=== PATIENT | male | born 1970 | race Caucasian/White ===

== ENCOUNTER 2023-09-09 06:33 | Outpatient (RCR) | payer OTHER, SELFPAY | END 2023-09-09 23:59 | disposition home or self-care (01) | LOC: RPT 06:33 | PROVIDERS: ATTENDING PHYSICIAN Orthopaedic Surgery; FAMILY PHYSICIAN Nurse Practitioner Primary Care | DX: M54.2 Cervicalgia (principal); Z73.6 Limitation of activities due to disability; M79.601 Pain in right arm; M54.6 Pain in thoracic spine; M43.22 Fusion of spine, cervical region | CPT/HCPCS: 97010; 97110; 97140; 97161 ==

== ENCOUNTER 2023-09-19 08:55 | Outpatient (RCR) | payer OTHER, SELFPAY | END 2023-09-20 09:52 | disposition home or self-care (01) | LOC: RPT 08:55 | PROVIDERS: ATTENDING PHYSICIAN Orthopaedic Surgery; FAMILY PHYSICIAN Nurse Practitioner Primary Care | DX: M54.2 Cervicalgia (principal); Z73.6 Limitation of activities due to disability | CPT/HCPCS: 97110; 97140 ==